=== PATIENT | female | born 1960 | race Caucasian/White ===

== ENCOUNTER 2024-10-28 14:37 | Emergency (ER) | payer OTHER, SELFPAY ==
[2024-10-28 14:40] VITALS: BP 185/104
[2024-10-28 15:07] LABS: % Basophils 0.5 % (0-2); % Eosinophils 1.7 % (0-6); % Immature Granulocytes 0.2 % (0-0.5); % Lymphocytes 36.5 % (20.5-51.1); % Monocytes 8.1 % (1.7-9.3); Absolute Eosinophils 0.1 10^3/uL (0-0.7); Absolute Lymphocytes 2.2 10^3/uL (1.2-3.4); Absolute Monocytes 0.5 10^3/uL (0.1-0.6); Absolute Neutrophils 3.1 10^3/uL (1.4-6.5); Hematocrit 39.1 % (37.0-47.0); Hemoglobin 13.6 g/dL (12.0-16.0); Mean Corp Hgb Conc. 34.8 g/dL (33.0-37.0); Mean Corpuscular Hgb 29.8 pg (27.0-31.0); Mean Corpuscular Volume 85.6 fL (81.0-99.0); Mean Platelet Volume 8.4 fL (7.4-10.4); Nucleated Red Blood Cells % 0 %; Platelet Count 300 10^3/uL (130-400); Red Blood Cell Count 4.57 10^6/uL (4.20-5.40); Red Cell Dist. Width 12.5 % (11.5-14.5); White Blood Cell Count 5.9 10^3/uL (4.8-10.8)
[2024-10-28 15:18] LABS: ALT (SGPT) 26 U/L (0-35); AST (SGOT) 26 U/L (14-36); Albumin 4.7 g/dl (3.5-5.0); Alkaline Phosphatase 69 U/L (38-126); Blood Urea Nitrogen 13 mg/dl (7-17); Calcium 9.2 mg/dl (8.4-10.2); Carbon Dioxide 26 mmol/L (22-30); Chloride 102 mmol/L (98-107); Glucose 104 mg/dl (70-99); Potassium 3.9 mmol/L (3.5-5.1); Sodium 136 mmol/L (135-145); Total Bilirubin 0.7 mg/dl (0.2-1.3); Total Protein 7.3 g/dl (6.3-8.2); eGFR > 60.00
[2024-10-28 15:18] LABS: Urine Albumin Negative (Neg - Trace); Urine Bilirubin Negative (Negative); Urine Character Clear (Clear); Urine Color Yellow; Urine Glucose Negative (Negative); Urine Ketone Negative (Negative); Urine Leukocyte Negative (Negative); Urine Nitrite Negative (Negative); Urine Occult Blood Negative (Negative); Urine Specific Gravity 1.005 (<1.030); Urine Urobilinogen Negative (Neg - 1+)
[2024-10-28 15:30] LABS: Troponin I < 0.012 ng/ml
[2024-10-28 16:10] VITALS: BP 143/81; BMI 29.8
[2024-10-28 17:00] VITALS: BP 124/72
[2024-10-28 18:00] VITALS: BP 129/68
--- NOTE | 2024-10-28 18:01 | ED.GENMED ---
History of Present Illness
General
Chief Complaint: Dizziness
Source: patient and spouse
Exam Limitations: none
Time Seen by Provider: 10/28/24 17:51
Nursing documentation reviewed up to this point in time: agreed with
History of Present Illness
History of Present Illness:
63-year-old female with a past medical history of hypertension, hyperlipidemia who presents to the emergency department for evaluation of general weakness and multiple other complaints. Patient weaker than usual with no energy. She says she felt
mildly dizzy/lightheadedness. She says that she noticed that she was having some heaviness in her right arm. She says she felt that she was having some mild tingling in her right calf. She says she had some mild pain in her right flank. Decided
she would come to the ER to be evaluated. She says that since arrival in the emergency room her symptoms seem to have resolved and aside from being hungry she has no other acute complaints here. She did not and does not have any change in her
vision or speech. No neck pain. She denies any chest pain. She denies any abdominal pain. Denies any nausea or vomiting. She denies any urinary issues. She denies having had similar issues in the past.
Review of Systems
Review of Systems
All Other Systems: ROS reviewed and negative except as documented in HPI and ROS
Constitutional: Reports fatigue; Denies fever or chills
Respiratory: Denies trouble breathing
Cardiac: Denies chest pain or syncope
ABD/GI: Denies abdominal pain, nausea, vomiting or diarrhea
: Reports flank pain; Denies dysuria
Musculoskeletal: Denies neck pain or back pain
Neurological: Reports dizzy, weakness (Generalized weakness also reported some transient heaviness in the right arm) and other (She said she had some transient tingling/paresthesia in the right calf); Denies headache or numbness
Phy Exam
Physical Exam
Physical Exam:
General: Awake, alert, oriented x3; no acute distress
Head: Normocephalic, atraumatic
Eyes: Conjunctiva normal, pupils equal round reactive to light bilaterally, extraocular moods are intact
Throat: Airway intact, handling secretions
Neck: Trachea midline
Lungs: Clear to auscultation bilaterally, no wheezing, rales, rhonchi
Heart: Regular rate and rhythm, no murmurs, gallops, or rubs
Abd: Soft, non distended, nontender
Back: No CVA tenderness, no reproducible tenderness in the flank
Neuro: Cranial nerves intact 2 through 12, speech fluid without dysarthria or aphasia, motor and sensory is intact and symmetric proximally and distally in the upper and lower extremities
Skin: no rash in area of concern on flank
Extremities: No edema in extremities, equal pulses in all extremities
Scores
Heart Failure Risk
Heart Failure Risk Score: Not Applicable
Heart Score for Chest Pain Patients
STEMI patient?: Not applicable
Withdrawal Assessment of Alcohol
Withdrawal Assessment Completed?: Not applicable
Course
Orders/Labs/Results
Orders:
Orders
10/28/24 14:40
Electrocardiogram (*1) Urgent
Reason for Study: Chest Pain
EKG- Treatment ONCE
10/28/24 14:44
CT Head W/o Iv Contrast Urgent
Comment:
Reason For Exam: lightheadness/right arm heaviness
Cardiac Monitoring- Treatment ONCE
IV Insert/Care/Rem.- Treatment PRN
O2 Therapy [RESP] Urgent
Titrate/Wean O2 to maintain O2 sat greater than (%): 90
Special Instructions: Maintain sats >/=90%
Pulse Ox/spot Check [RESP] Urgent
Quantity: 1
Special Instructions: ON ROOM AIR
10/28/24 14:50
Complete Blood Count/With Diff Urgent
Comprehensive Metabolic Panel Urgent
Troponin I Urgent
10/28/24 15:06
Urinalysis Reflex To Culture Urgent
Date Specimen was Collected: 10/28/24
Time Specimen was Collected: 15:03
10/28/24 18:14
COVID-19 Antigen Urgent
Source: Nasal Swab
Influenza A+B Rapid Molecular Urgent
[place] Source: Nasal Swab
Specimen Description:
Abnormal Lab Results
10/28/24
14:50
Glucose 104 H mg/dl
(70-99)
10/28/24 14:50
10/28/24 14:50
Vital Signs
Initial and Last Documented VS:
Initial Vital Signs
Temp Pulse Resp BP Pulse Ox
37.3 C 102 18 185/104 99
10/28/24 14:40 10/28/24 14:40 10/28/24 14:40 10/28/24 14:40 10/28/24 14:40
Last Documented Vital Signs
Temp Pulse Resp BP Pulse Ox
37.3 C 65 16 129/68 97
10/28/24 14:40 10/28/24 18:00 10/28/24 18:00 10/28/24 18:00 10/28/24 18:14
MDM/Problems Addressed
Differential Diagnosis Includes:
Differential diagnosis for generalized weakness is why�stroke/TIA to be considered given her report of transient right arm heaviness and paresthesias in the right leg however no objective neurologic deficits and she says the symptoms were transient
and have completely resolved; aortic dissection a consideration but with symptoms having resolved and with such a reassuring exam I think this is very unlikely clinically; symptoms could be related to anemia, viral syndrome, UTI, electrolyte
derangement, dysrhythmia, hypoglycemia, dehydration, etc
MDM/Problems Addressed:
63-year-old female with history as noted presents for evaluation of generalized weakness today that seems to have improved. She also had some transient dizziness, some right arm heaviness and transient paresthesias in the right calf. Finally she
said that earlier today she had some right flank pain. She was hypertensive and tachycardic in triage but her vital signs have all normalized by my assessment. Her physical exam is as above�notably she has a nonfocal neurologic exam. She has EKG
which shows a sinus rhythm. She had lab work sent in triage including a CBC and a CMP which showed no clinically significant abnormalities. She had a troponin which was undetectable. She had a urinalysis which was bland. She had a CT head which
was negative for any acute abnormalities. Viral swabs are negative.
I do long discussion with the patient about her results, differential diagnosis. Low suspicion for TIA clinically�hard to reconcile flank pain with TIA. Certainly she has not nothing to suggest aortic dissection with normal vital signs, resolution
of symptoms, benign physical exam. At this point very low suspicion for emergent pathology. Could be that she is coming down with a virus, could have been hyperventilation or panic. I offered patient admission for observation and neurology
consultation but she feels better if she wishes to go home. She feels comfortable with strict return precautions. Using shared decision making discharged with close return precautions. All questions answered.
Chronic conditions affecting care:
Hypertension
Acute Exacerbation and/or Progression of Chronic Illness:
Acutely hypertensive resolved without intervention continue to monitor but no additional antihypertensives indicated at this point
Acute Exacerbation and/or Progression of Chronic Illness: HTN
*Radiology
Radiology exam reviewed: radiology read reviewed
*Pulse Oximetry
SaO2: 97
Oxygen Mode of Delivery: Room air
Patient hypoxic: no (97%)
*EKG
Interpreted by ED Provider?: Yes
Heart Rate: 89
Rate: normal
Rhythm: sinus
Topaz: normal axis
Interval: normal interval
QRS Pattern: normal QRS
Ischemia: no ischemia
*Critical Care Note
Total Time (30-74mins, 75-104mins- exclusive of procedures): Not Applicable
Data Reviewed
Source: patient and spouse
Patient Management
Escalation/DeEscalation of care consider admission/obs:
Offered admission�shared decision making opted for discharge with strict return precautions
ED Attending Note
-
Portions of this chart may have been created with voice recognition software.� Occasional wrong word or��sound alike� substitutions may have occurred due to the inherent limitations of voice recognition software.
Discharge Plan
Departure
Patient Disposition: Home (Routine Discharge)
Date of Disposition: 10/28/24
Time of Disposition: 18:45
Patient with high blood pressure during this ER visit?: Yes
Discharge Problem:
Hypertension, Weakness, Flank pain
Instructions: Weakness - ED discharge instructions, BLOOD PRESSURE
Referrals:
Evan Edmondson MD [Family Provider] - Follow up in 1 week
Activity Restrictions/Additional Instructions:
Thank you for visiting the Emergency Department at [facility].
1. Please schedule a follow up appointment as directed. Call first thing tomorrow morning to make an appointment.
2. If indicated, please take your medications as instructed and indicated on discharge paperwork.
3. If any of your symptoms do not improve, or persist, or become more severe within 6-12 hours, please return to the emergency department for further care.
4. Please return to the emergency department if you develop a headache, neck pain/stiffness, fever greater than 100.4F, chest pain, shortness of breath, persistent nausea, vomiting, slurred speech, difficulty walking, numbness/tingling, weakness,
signs of infection or any other symptoms that are worrisome to you.
Please call [phone] if you have any questions.
Interventions
Interventions:
*Risk Screen - Suicide Last Done: 10/28/24 14:40
*General Assessment Last Done: 10/28/24 16:10
*Neglect/Abuse Screening Last Done: 10/28/24 14:40
*ED- Fall Risk Assessment Last Done: 10/28/24 16:10
*ED COVID-19 Vaccine History Last Done: 10/28/24 16:10
ED- Neurological Assessment Last Done: 10/28/24 16:14
ED Swallowing Screen Last Done: 10/28/24 17:23
Discharge Date and Time
Print Language: GERMAN
[2024-10-28 18:36] LABS: COVID-19 Antigen Negative (Negative)
[2024-10-28 18:52] VITALS: BP 133/69
== END 2024-10-28 19:01 | disposition home or self-care (01) ==
LOC: EMR 14:37
PROVIDERS: Student in an Organized Health Care Education/Training Program; EMERGENCY PHYSICIAN Emergency Medicine; FAMILY PHYSICIAN Family Medicine
DX: R42 Dizziness and giddiness (principal); R10.9 Unspecified abdominal pain; R53.1 Weakness; R20.2 Paresthesia of skin; R39.15 Urgency of urination; Z11.52 Encounter for screening for COVID-19; I10 Essential (primary) hypertension; E78.5 Hyperlipidemia, unspecified; Z88.1 Allergy status to other antibiotic agents
CPT/HCPCS: 99285; 94760; 70450; 80053; 81003; 84484; 85025; 87502; 87811; 93005